=== PATIENT | female | born 1985 | race Caucasian/White ===

== ENCOUNTER 2018-11-26 12:54 | Outpatient (REF) | payer OTHER, SELFPAY ==
[2018-11-26 13:56] LABS: Abs Immature Grans 0.01 k/cumm (0.0-0.09); Absolute Basophil Count 0.02 k/cumm (0.0-0.2); Absolute Eosinophil Count 0.13 k/cumm (0.0-0.7); Absolute Lymphocyte Count 1.84 k/cumm (1.2-3.4); Absolute Monocyte Count 0.47 k/cumm (0.11-0.7); Absolute Neutrophil Count 2.47 k/cumm (1.2-6.7); Basophils % 0.4; Eosinophils % 2.6; HCT 39.4 % (36.0-46.0); HGB 13.2 g/dL (12.0-15.5); Immature Grans % 0.2; Lymphocytes % 37.2; Mean Corp. HGB Concentration 33.5 g/dL (32.0-36.0); Mean Corpuscular Hemoglobin 31.8 pg (27.0-33.0); Mean Corpuscular Volume 94.9 fL (80-95); Mean Platelet Volume 10.2 fL (8.0-11.0); Monocytes % 9.5; Neutrophils % 50.1; Platelet Count 270 x1000/uL (130-400); RBC 4.15 m/cumm (4.00-5.20); RBC Distribution Width 13.6 % (11.7-14.6); White Blood Cell Count 4.94 k/cumm (4.4-10.8)
[2018-11-26 14:34] LABS: Anion Gap 6.9 mmol/L (3-11); BUN 10 mg/dL (7-18); CO2 29.1 mmol/L (21.0-32.0); CREATININE 0.69 mg/dL (0.55-1.02); Calcium 8.8 mg/dL (8.5-10.1); Chloride 103 mmol/L (98-107); Glucose 88 mg/dL (70-100); Potassium 4.2 mmol/L (3.5-5.1); Sodium 139 mmol/L (136-145); TSH (W/Ref FT4) 2.37 uIU/mL (0.358-3.74)
== END 2018-11-26 13:14 ==
LOC: NCHCN 12:54
PROVIDERS: PCP Nurse Practitioner Family; Visit Provider Nurse Practitioner Family
DX: N94.6 Dysmenorrhea, unspecified (principal)
CPT/HCPCS: 80048; 84443; 85025

== ENCOUNTER 2019-01-21 12:35 | Outpatient (REF) | payer OTHER, SELFPAY ==
--- NOTE | 2019-01-21 10:50 | PAPFT_PTH ---
PATIENT: DERJEE BEST LOC: [facility] U#:[id number] AGE/SX: 34/F ROOM: RE01/21/[address]: Jania Marinelli NP : [id number] BED: DIS: 01/21/2019 SPEC #: [id number] RECD: 01/21/19 12:49 STATUS: GALINA RODRIGUEZ #: [id number] ROSS: 01/21/19 10:[address]: Jania Mrainelli NP DEPT: [facility] Cytology RECD BY: Sandee Storm ENTERED: 01/21/19 12:50 SP TYPE: PAPFT OTHR DR: Arnoldo Michelle Tissues: 1 - CX/ENDOCX FOR PAP SMEARS Procedures: PAP THIN PREP/[facility] Screening HPV DNA PROBE Comments: [id number]
== END 2019-01-21 12:55 ==
LOC: LBN 12:35
PROVIDERS: PCP Nurse Practitioner Family; Visit Provider Nurse Practitioner Women's Health
DX: Z12.4 Encounter for screening for malignant neoplasm of cervix (principal); Z11.51 Encounter for screening for human papillomavirus (HPV)
CPT/HCPCS: 88142; 87624

== ENCOUNTER 2019-02-16 00:22 | Outpatient (CLI) | payer OTHER, SELFPAY ==
--- NOTE | 2019-02-16 09:43 | DI.US_ITS ---
SYMPTOM/DIAGNOSIS: PELVIC PAIN, RLQ R10.2 PELVIC ULTRASOUND: A transabdominal and transvaginal examination was performed. Uterine retroversion is demonstrated. The uterus measures 7.6 cm in length x 3.2 cm in height and 4.7 cm in width. Endometrial stripe thickness of 12.5 mm. There is a moderate quantity of free fluid adjacent to the fundus. The right ovary measures 4.2 x 2.6 z 2.5 cm and contains two cysts, the largest of which measures 2.7 x 2.3 x 2.7 cm. The smaller cyst measures 1.6 cm and appears to be a collapsing cyst. The left ovary measures 2 x 1.5 x 1.5 cm and is unremarkable. SUMMARY: A retroverted uterus is demonstrated. There is a moderate quantity of free fluid adjacent to the uterine fundus. Right ovarian cysts are demonstrated as described above. The examination is otherwise unremarkable.
== END 2019-02-16 00:42 ==
PROVIDERS: PCP Nurse Practitioner Family; Visit Provider Nurse Practitioner Women's Health
DX: R10.2 Pelvic and perineal pain (principal); N85.4 Malposition of uterus; N83.291 Other ovarian cyst, right side
CPT/HCPCS: 76830; 76856

== ENCOUNTER 2019-04-22 01:10 | Outpatient (CLI) | payer OTHER, SELFPAY ==
--- NOTE | 2019-04-22 14:43 | DI.COMBO_ITS ---
SYMPTOMS/DIAGNOSIS: DIAGNOSTIC, BILATERAL BREAST MASSES, FAMILY H/O BREAST CA, N63.0 MAMMOGRAMS: Mammograms were interpreted according to the usual protocol including computer analysis with CAD system, tomosynthesis and C view imaging. Bilateral breast implants are noted. The breast tissue is of moderate radiodensity. There are regions of bilateral increased density in the subareolar portion of the breast. No discrete mass is identified. There are no suspicious calcifications. Bilateral breast ultrasound was carried out. There is no demonstrated right or left breast mass or cyst. There is no evidence of a malignancy. SUMMARY: Bilateral breast implants intact. There is moderately radiodense breast tissue. Category 1, breast density category C. Follow-up surveillance with annual screening mammography is recommended. [facility] ASSESSMENT OF FINDINGS: Negative. Category 1. Patient will receive a letter notifying them of these results. Bi-RADS category C. The breasts are heterogeneously dense, which may obscure small masses.
== END 2019-04-22 01:30 ==
PROVIDERS: PCP Nurse Practitioner Family; Visit Provider Nurse Practitioner Family
DX: N63.10 Unspecified lump in the right breast, unspecified quadrant (principal); N63.20 Unspecified lump in the left breast, unspecified quadrant; Z98.82 Breast implant status; Z80.3 Family history of malignant neoplasm of breast
CPT/HCPCS: 76642; 77062; 77066; G0279

== ENCOUNTER 2019-11-10 09:34 | Outpatient (REF) | payer OTHER, SELFPAY ==
[2019-11-10 22:42] LABS: Lithium 0.55 mmol/L (0.60-1.20)
== END 2019-11-10 09:54 ==
LOC: NCHCN 09:34
PROVIDERS: PCP Nurse Practitioner Family; Visit Provider Nurse Practitioner Family
DX: F29 Unspecified psychosis not due to a substance or known physiological condition (principal); F31.64 Bipolar disorder, current episode mixed, severe, with psychotic features; F42.2 Mixed obsessional thoughts and acts; Z51.81 Encounter for therapeutic drug level monitoring
CPT/HCPCS: 80178

== ENCOUNTER 2020-01-28 21:51 | Outpatient (REF) | payer OTHER, SELFPAY ==
[2020-01-28 21:53] LABS: ALT 23 U/L (14-59); AST 20 U/L (15-37); Albumin 4.2 g/dL (3.4-5.0); Alkaline Phosphatase 60 U/L (46-116); BUN 11 mg/dL (7-18); Bilirubin, Total 0.7 mg/dL (0.2-1.0); CREATININE 0.82 mg/dL (0.55-1.02); Calcium 9.3 mg/dL (8.5-10.1); Chloride 104 mmol/L (98-107); Glucose 106 mg/dL (74-106); Potassium 4.7 mmol/L (3.5-5.1); Sodium 139 mmol/L (136-145)
[2020-01-28 21:59] LABS: Lithium 0.72 mmol/L (0.60-1.20)
== END 2020-01-28 22:11 ==
LOC: NCHCN 21:51
PROVIDERS: PCP Nurse Practitioner Family; Visit Provider Nurse Practitioner Psychiatric/Mental Health
DX: F31.64 Bipolar disorder, current episode mixed, severe, with psychotic features (principal); R41.89 Other symptoms and signs involving cognitive functions and awareness; Z51.81 Encounter for therapeutic drug level monitoring
CPT/HCPCS: 80053; 80178